=== PATIENT | male | born 1975 | race Caucasian/White ===

== ENCOUNTER 2021-07-30 07:49 | Outpatient (CLI) | payer BC | END 2021-07-30 07:50 | disposition home or self-care (01) | LOC: CSHULT 07:49 | PROVIDERS: ATTEND Family Medicine | DX: I82.511 Chronic embolism and thrombosis of right femoral vein (principal); I82.531 Chronic embolism and thrombosis of right popliteal vein ==

== ENCOUNTER 2024-12-15 15:32 | Outpatient (CLI) | payer BC | END 2024-12-15 15:33 | disposition home or self-care (01) | LOC: CSHULT 15:32 | DX: I82.511 Chronic embolism and thrombosis of right femoral vein (principal) ==